=== PATIENT | male | born 1940 | race Caucasian/White ===

== ENCOUNTER → 2017-10-01 11:39 | Outpatient (CLI) | payer MEDICARE, SELFPAY ==
[2017-10-03 16:10] LABS: Chicken 0.12 kU/L (Class 0/I); Egg, Whole <0.10 kU/L (Class 0); Gluten <0.10 kU/L (Class 0); Milk (Cow) <0.10 kU/L (Class 0); Oat 0.28 kU/L (Class 0/I); Rice 0.72 kU/L (Class II); Soybean 0.67 kU/L (Class II); Strawberry 0.44 kU/L (Class I)
[2017-10-04 03:08] LABS: Alternaria tenuis <0.10 kU/L (Class 0); Ash, White 1.19 kU/L (Class II); Aspergillus fumigatus <0.10 kU/L (Class 0); Bermuda Grass 2.85 kU/L (Class III); Birch 0.19 kU/L (Class 0/I); Black Walnut 0.58 kU/L (Class II); Cat Hair / Dander,Stand <0.10 kU/L (Class 0); Cedar, Mountain 0.57 kU/L (Class II); Cladosporium herbarum <0.10 kU/L (Class 0); Cockroach, American 0.69 kU/L (Class II); Cottonwood 0.58 kU/L (Class II); D farinae Mite <0.10 kU/L (Class 0); D pteronyssinus <0.10 kU/L (Class 0); Dog Epithelia <0.10 kU/L (Class 0); Elm, American White 0.94 kU/L (Class II); Immunoglobulin E 136 IU/mL (0-100); Maple/Box Elder 0.78 kU/L (Class II); Mulberry, White 0.35 kU/L (Class I); Oak, White 1.42 kU/L (Class III); Pecan 0.18 kU/L (Class 0/I); Penicillium Notatum <0.10 kU/L (Class 0); Pigweed, Rough 0.66 kU/L (Class II); Ragweed, Short/Common 0.73 kU/L (Class II); Russian Thistle 3.02 kU/L (Class III); Sheep Sorrel 1.87 kU/L (Class III); Sycamore, American 1.69 kU/L (Class III); Timothy Grass 1.66 kU/L (Class III)
[2017-10-04 09:26] LABS: Mouse Urine <0.10 kU/L (Class 0)
[2017-10-04 09:34] LABS: Turkey <0.10 kU/L (Class 0)
== END ==
PROVIDERS: Visit Provider Otolaryngology Otolaryngology/Facial Plastic Surgery
DX: T78.40XA Allergy, unspecified, initial encounter (principal)
CPT/HCPCS: 36415; 82785; 86003